=== PATIENT | male | born 1955 | race African-American/Black ===

== ENCOUNTER 2016-09-08 13:23 | Emergency (ER) | payer OTHER ==
[~2016-09-08 13:23] MED LIST: ANTABUSE250 MG OR; CONSTULOSE PO; ENULOSE PO; FERROUS SULF324 MG PO; GENERLAC PO; IRON325 MG PO; KDUR20 PO; MAX25 PO; METHOC500B PO; NAP500 PO; NEUR600 PO; NUCYNTA50 MG PO; OXYCON20 PO; OXYCONTIN15 MG PO; OXYCONTIN30 MG PO; PERCOCET1 TA4 PO; PROAIR HFA INH; PROTONIX PO; SPIRIVA INH; SYMBICORT 80/4.1 INH INH; ULTRAM50 PO; VITD PO; X25 PO; ZANAFLEX 4 MG TA4 MG PO; ZANAFLEX2 MG PO
== END 2016-09-08 13:53 | disposition home or self-care (01) ==
LOC: ER 13:23
DX: M79.675 Pain in left toe(s) (principal); I10 Essential (primary) hypertension; J44.9 Chronic obstructive pulmonary disease, unspecified; F31.9 Bipolar disorder, unspecified; F41.9 Anxiety disorder, unspecified; Z85.118 Personal history of other malignant neoplasm of bronchus and lung; Z79.899 Other long term (current) drug therapy
CPT/HCPCS: 73660-LT; 82962; 99283